=== PATIENT | female | born 1965 | race Caucasian/White ===

== ENCOUNTER 2017-10-27 00:46 | Emergency (ER) | payer SELFPAY ==
[2017-10-27 00:47] VITALS: BMI 42.3
[2017-10-27 00:55] VITALS: RESP 20
[2017-10-27] MEDS ORDERED: Sodium Chloride 0.9% 500 ML IV ONE (01:11)
[2017-10-27] MEDS ORDERED: Aluminum Hydroxide/Magnesium Hydroxide Susp (30 mL) PO STA (01:27)
[2017-10-27] MEDS ORDERED: Aluminum Hydroxide/Magnesium Hydroxide Susp (30 mL) ONE (01:35)
[2017-10-27] MEDS ORDERED: Sodium Chloride 0.9% 1,000 ML ONE (01:35)
[2017-10-27 01:57] LABS: BASO # 0.1 K/uL (0.0-0.2); BASO % 1.1 % (0.0-2.0); EOS # 0.2 K/uL (0.0-0.7); EOS % 1.9 % (0.0-4.0); HEMOGLOBIN 14.4 g/dL (11.0-16.0); LYMPH % 10.2 % (20.0-40.0); MEAN CELL VOLUME 90.3 fL (81.0-99.0); MEAN CORPUSCULAR HEMOGLOBIN 31.1 pg (27.0-31.0); MEAN CORPUSCULAR HGB CONC 34.4 g/dL (33.0-37.0); MEAN PLATELET VOLUME 8.2 fL (7.2-11.7); MONO # 0.5 K/uL (0.0-0.8); MONO % 4.7 % (0.0-10.0); NEUT # 8.2 K/uL (1.8-7.0); NEUT % 82.1 % (50.0-75.0); RBC 4.64 Mil/uL (3.80-5.20); RED CELL DISTRIBUTION WIDTH 13.6 % (11.5-14.5)
[2017-10-27 02:16] LABS: ALB/GLOB RATIO 1.1 (1.0-2.1); ALBUMIN 4.2 g/dL (3.5-5.0); ALT/SGPT 565 U/L (9-52); AST/SGOT 453 U/L (14-36); BLOOD UREA NITROGEN 10 mg/dL (7-17); CALCIUM 8.7 mg/dl (8.6-10.4); GFR AFRICAN-AMERICAN > 60; GFR NON-AFRICAN AMERICAN > 60; LIPASE 175 U/L (23-300)
--- NOTE | 2017-10-27 02:40 | C.PDOC ---
History Of Present Illness 52 year old female presents to the ED c/o intermittent epigastric pain associated with vomiting for the past 2 days. Patient reports her pain has been getting progressively worse since yesterday. Patient denies fever, chills, diarrhea, constipation, recent travel, sick contacts, past Hx of similar symptoms. Time Seen by Provider: 10/27/17 01:10 Chief Complaint (Nursing): Abdominal Pain History Per: Patient History/Exam Limitations: no limitations Onset/Duration Of Symptoms: Days Current Symptoms Are (Timing): Still Present Location Of Pain/Discomfort: Epigastric Radiation Of Pain To:: None Quality Of Discomfort: "Pain" Associated Symptoms: Vomiting Exacerbating Factors: None Alleviating Factors: None Recent travel outside of the [place]: No Additional History Per: Patient Abnormal Vaginal Bleeding: No Past Medical History Reviewed: Historical Data, Nursing Documentation, Vital Signs Vital Signs: Last Vital Signs Temp 98.3 F 10/27/17 06:15 Pulse 81 10/27/17 06:15 Resp 20 10/27/17 06:15 BP 149/81 10/27/17 06:15 Pulse Ox 98 10/27/17 06:15 - Medical History PMH: HTN (not on meds) Denies: Chronic Kidney Disease Surgical History: No Surg Hx Family History: States: Unknown Family Hx - Social History Hx Tobacco Use: No Hx Alcohol Use: No Hx Substance Use: No - Immunization History Hx Tetanus Toxoid Vaccination: No Hx Influenza Vaccination: No Hx Pneumococcal Vaccination: No Review Of Systems Constitutional: Negative for: Fever, Chills Cardiovascular: Negative for: Chest Pain, Palpitations Respiratory: Negative for: Cough, Shortness of Breath Gastrointestinal: Positive for: Vomiting, Abdominal Pain. Negative for: Diarrhea, Constipation Genitourinary: Negative for: Dysuria, Frequency Skin: Negative for: Rash Neurological: Negative for: Weakness, Numbness Physical Exam - Physical Exam Appears: Non-toxic, No Acute Distress Skin: Normal Color, Warm, Dry Head: Atraumatic, Normacephalic Oral Mucosa: Moist Neck: Normal ROM, Supple Chest: Symmetrical Cardiovascular: Rhythm Regular, Murmur Respiratory: Normal Breath Sounds, No Rhonchi, No Wheezing Gastrointestinal/Abdominal: Soft, Tenderness (epigastric, RUQ), No Distention, No Guarding, No Rebound, Other (obese) Back: No CVA Tenderness Extremity: Normal ROM, No Pedal Edema, No Calf Tenderness, No Deformity, No Swelling Neurological/Psych: Oriented x3, Normal Speech, Normal Cognition Gait: Steady ED Course And Treatment - Laboratory Results Result Diagrams: 10/27/17 01:52 10/27/17 01:52 Urine POC: Negative O2 Sat by Pulse Oximetry: 97 (On RA) Pulse Ox Interpretation: Normal - CT Scan/US CT abd/pelvis Other Rad Studies (CT/US): Read By Radiologist, Radiology Report Reviewed CT/US Interpretation: FINDINGS: The liver is decreased in attenuation consistent with fatty infiltration. The pancreas is normal. Gallbladder wall appears slightly edematous. No gallstones identified. No pericholecystic stranding. No hydronephrosis or perinephric stranding. There are non obstructing renal calculi. The bowel appears normal. A normal appendix is identified axial images 112 through 127, coronal image 75. There is an umbilical fat hernia without evidence of incarceration/strangulation. IMPRESSION: Slightly edematous gallbladder wall without gallstones or pericholecystic stranding. If there is clinical. concern for cholecystitis, additional imaging w ultrasound or HIDA could be performed. Progress Note: Plan: -Blood work. -CT abd/pelvis. -IV fluids. -Maalox 30 ml PO. -Pepcid 20 mg IVP. -Zofran 4 mf IVP. -UA. Patient reports feelign better after the medicine was given, labs were reviewed and patient's LFTs were elevated still pendig CT abd scan. Reevaluation Time: 05:17 Reassessment Condition: Improved (Pt sleeping comfortably in ED and in NAD , VSS. Abdomen remains soft Pt was instructed to follow up in clinic for further evaluation and also educated in diet control) Disposition Counseled Patient/Family Regarding: Studies Performed - Disposition Referrals: [facility] [Outside] Disposition: HOME/ ROUTINE Disposition Time: 05:27 Condition: STABLE Additional Instructions: Avoid greasy , spicy foods, red meat Follow up in medicine clinic Return to ER if worse Prescriptions: Aluminum Hydroxide/Magnesium H [Maalox 30 ml] 30 ml PO TID #100 ml Famotidine [Pepcid] 20 mg PO BID #20 tab Instructions: Acute Abdominal Pain (ED) Forms: [employer] (Danish) Print Language: KAZAKH - Clinical Impression Clinical Impression: Abdominal pain - PA / RISK ASSESSOR / Resident Statement MD/DO has reviewed & agrees with the documentation as recorded. - Scribe Statement The provider has reviewed the documentation as recorded by the Scribe Jose Juan Mcknight All medical record entries made by the Kelliibe were at my direction and personally dictated by me. I have reviewed the chart and agree that the record accurately reflects my personal performance of the history, physical exam, medical decision making, and the department course for this patient. I have also personally directed, reviewed, and agree with the discharge instructions and disposition.
[2017-10-27] MEDS ORDERED: Iodixanol 320 MG/ML 100 ML BOTTLE IV ONE (03:32)
[2017-10-27 03:33] LABS: SQUAMOUS EPITHIAL 1 /hpf (0-5); URINE BILIRUBIN NEGATIVE (NEGATIVE); URINE BLOOD 1+ (NEGATIVE); URINE CLARITY Clear (Clear); URINE COLOR Amber (YELLOW); URINE GLUCOSE (UA) NORMAL (Normal); URINE LEUKOCYTE ESTERASE TRACE Leu/uL (Negative); URINE NITRATE NEGATIVE (NEGATIVE); URINE PROTEIN NEGATIVE (NEGATIVE); URINE UROBILINOGEN NORMAL mg/dL (0.2-1.0)
--- NOTE | 2017-10-27 04:55 | CT ---
EXAM: CT Abdomen and Pelvis With Intravenous Contrast EXAM DATE/TIME: 10/27/2017 2:54 AM CLINICAL HISTORY: 52 years old, female; Pain; Abdominal pain; Epigastric; Additional info: Abd pain , epigastric, elevated lfts TECHNIQUE: Axial computed tomography images of the abdomen and pelvis with intravenous contrast. All CT scans at this facility use one or more dose reduction techniques, viz.: automated exposure control; ma/kV adjustment per patient size (including targeted exams where dose is matched to indication; i.e. head); or iterative reconstruction technique. Coronal and sagittal reformatted images were created and reviewed. CONTRAST: 100 mL of [id number] administered intravenously. COMPARISON: No relevant prior studies available. FINDINGS: The liver is decreased in attenuation consistent with fatty infiltration. The spleen is normal. The pancreas is normal. Gallbladder wall appears slightly edematous. No gallstones identified. No pericholecystic stranding. No hydronephrosis or perinephric stranding. There are non obstructing renal calculi. The bowel appears normal. A normal appendix is identified axial images 112 through 127, coronal image 75. There is an umbilical fat hernia without evidence of incarceration/strangulation. IMPRESSION: Slightly edematous gallbladder wall without gallstones or pericholecystic stranding. If there is clinical concern for cholecystitis, additional imaging w ultrasound or HIDA could be performed.
[2017-10-27 06:16] VITALS: BP 149/81; PULSE 81; TEMP 98.3
[2017-10-28 02:59] VITALS: O2SAT 97
== END 2017-10-27 06:16 | disposition home or self-care (01) ==
LOC: C.ER 00:46
DX: R10.13 Epigastric pain (principal); I10 Essential (primary) hypertension
CPT/HCPCS: 74177; 80053; 81001; 83690; 84703; 85025; 96374; 96375; 99285; J2405; J7040; Q9967

== ENCOUNTER 2017-12-30 08:22 | Emergency (ER) | payer OTHER ==
[2017-12-30 08:23] VITALS: BMI 42.3
[2017-12-30] MEDS ORDERED: Sodium Chloride 0.9% 1,000 ML IV ONE (08:44)
[2017-12-30] MEDS ORDERED: Sodium Chloride 0.9% 1,000 ML ONE (09:10)
[2017-12-30 09:39] LABS: BASO % 0.1 % (0.0-2.0); EOS % 0.2 % (0.0-4.0); LYMPH # 1.2 K/uL (1.0-4.3); LYMPH % 6.3 % (20.0-40.0); MEAN CELL VOLUME 89.7 fL (81.0-99.0); MEAN CORPUSCULAR HEMOGLOBIN 30.3 pg (27.0-31.0); MEAN CORPUSCULAR HGB CONC 33.8 g/dL (33.0-37.0); MEAN PLATELET VOLUME 8.6 fL (7.2-11.7); MONO # 1.2 K/uL (0.0-0.8); MONO % 6.4 % (0.0-10.0); NEUT # 16.1 K/uL (1.8-7.0); PLATELET COUNT 217 K/uL (130-400); RBC 4.29 Mil/uL (3.80-5.20); RED CELL DISTRIBUTION WIDTH 14.3 % (11.5-14.5)
[2017-12-30 09:45] LABS: WHITE BLOOD COUNT 18.5 K/uL (4.8-10.8)
[2017-12-30 09:47] LABS: SQUAMOUS EPITHIAL 6 /hpf (0-5); URINE BACTERIA RARE (<OCC); URINE BILIRUBIN NEGATIVE (NEGATIVE); URINE BLOOD 2+ (NEGATIVE); URINE CLARITY Hazy (Clear); URINE COLOR Amber (YELLOW); URINE GLUCOSE (UA) NORMAL (Normal); URINE LEUKOCYTE ESTERASE 2+ Leu/uL (Negative); URINE NITRATE POSITIVE (NEGATIVE); URINE PROTEIN 2+ mg/dL (NEGATIVE)
[2017-12-30 10:00] LABS: BANDS 8 % (0-2); LYMPHOCYTE 5 % (20-40); MONOCYTE 8 % (0-10); NEUTROPHIL 78 % (50-75); PLATELET ESTIMATE NORMAL (NORMAL); REACTIVE LYMPHOCYTES 1 % (0-0); TOTAL CELLS COUNTED 100
[2017-12-30 10:44] LABS: ALB/GLOB RATIO 0.9 (1.0-2.1); ALBUMIN 3.2 g/dL (3.5-5.0); ALT/SGPT 89 U/L (9-52); AST/SGOT 63 U/L (14-36); BLOOD UREA NITROGEN 15 mg/dL (7-17); CALCIUM 8.2 mg/dl (8.6-10.4); GFR AFRICAN-AMERICAN > 60; GFR NON-AFRICAN AMERICAN 52; LIPASE 80 U/L (23-300)
--- NOTE | 2017-12-30 11:12 | C.PDOC ---
History Of Present Illness 52 y/o female, obese, presents to the ER complaining of diffuse abdominal pain since yesterday which became localized to RUQ since today AM and associated with nausea and decreased PO intake. Patient describes pain as constant, aching. Patient denies high fever, chills, dizziness, neck pain, CP, SOB, dyspnea, diaphoresis, vomiting, diarrhea, UTI symptoms, hematuria. Ambulate to Ed for evaluation, appears in pain. Time Seen by Provider: 12/30/17 08:25 Chief Complaint (Nursing): Abdominal Pain History Per: Patient History/Exam Limitations: no limitations Onset/Duration Of Symptoms: Days Current Symptoms Are (Timing): Still Present Severity: Moderate Associated Symptoms: Nausea, Loss Of Appetite. denies: Fever, Chills, Vomiting , Diarrhea Past Medical History Reviewed: Historical Data, Nursing Documentation, Vital Signs Vital Signs: Last Vital Signs Temp 98.8 F 12/30/17 12:54 Pulse 77 12/30/17 12:54 Resp 18 12/30/17 12:54 BP 123/78 12/30/17 12:54 Pulse Ox 98 12/30/17 12:54 - Medical History PMH: HTN (not on meds) Denies: Chronic Kidney Disease Other PMH: Obese Other Surgeries: Hx of surgeries Family History: States: No Known Family Hx - Social History Hx Tobacco Use: No Hx Alcohol Use: No Hx Substance Use: No - Immunization History Hx Tetanus Toxoid Vaccination: No Hx Influenza Vaccination: No Hx Pneumococcal Vaccination: No Review Of Systems Except As Marked, All Systems Reviewed And Found Negative. Constitutional: Negative for: Fever, Chills Gastrointestinal: Positive for: Nausea, Abdominal Pain. Negative for: Vomiting , Diarrhea Genitourinary: Negative for: Dysuria, Hematuria Physical Exam - Physical Exam Appears: Non-toxic, No Acute Distress Skin: Normal Color, Warm Head: Normacephalic Nose: No Flaring, No Discharge Oral Mucosa: Moist, No Drooling Throat: No Erythema, No Drooling Neck: Trachea Midline, Supple Chest: Symmetrical Cardiovascular: Rhythm Regular Respiratory: No Accessory Muscle Use, No Rales, No Rhonchi, No Stridor, No Wheezing Gastrointestinal/Abdominal: Soft, Tenderness (moderate RUQ tenderness), No Distention, No Guarding, No Rebound Back: No CVA Tenderness Extremity: No Pedal Edema, No Deformity Neurological/Psych: Oriented x3, Normal Speech, Normal Motor, Normal Sensation ED Course And Treatment - Laboratory Results Result Diagrams: 12/30/17 09:24 12/30/17 10:28 Lab Interpretation: No Changes Compared To Prior Results ECG: Interpreted By Me, Viewed By Me ECG Rhythm: Sinus Rhythm ECG Interpretation: Normal Interpretation Of ECG: SR@89/MIN, LAD, T WAVE INVERSION IN III, NO ACUTE ST-T CHANGES O2 Sat by Pulse Oximetry: 99 (RA) Pulse Ox Interpretation: Normal - CT Scan/US Gallbladder/hepatic US Other Rad Studies (CT/US): Radiology Report Reviewed CT/US Interpretation: ADDENDUM: Dilated common bile duct and intrahepatic biliary dilatation as well as cholelithiasis. Correlate clinically. Echogenic liver may be seen in setting of hepatic parenchymal disease or fatty infiltration. [ Addendum Report Added by Amanda Hernandez MD at 12/30/2017 12:03:34 ]. HISTORY: RUQ pain. COMPARISON: CT abdomen pelvis with IV contrast performed 10/27/17. TECHNIQUE: Sonographic evaluation of the right upper quadrant of the abdomen. FINDINGS: LIVER: Measures 17.9 cm in length. Echogenic liver may be seen in setting of hepatic parenchymal disease or fatty infiltration. No focal hepatic mass identified. The main portal vein appears patent with normal directional flow. Intrahepatic biliary ductal dilatation. GALLBLADDER: Gallstones. No gallbladder wall thickening or pericholecystic edema. Negative sonographic Looney's sign as assessed by the brick pitcher. COMMON BILE DUCT: Measures 8 mm. PANCREAS: Not well-visualized. RIGHT KIDNEY : Measures 15.0 x 6.5 x 6.3 cm. No obstructing calculus or hydronephrosis identified. AORTA: Limited visualization appears grossly unremarkable. IVC: Limited visualization appears grossly unremarkable. OTHER FINDINGS: None . IMPRESSION: Echogenic liver may be seen in setting of hepatic parenchymal disease or fatty infiltration. Cholelithiasis. Dilated common bile duct and intrahepatic biliary ducts. Progress Note: Labs ordered. Patient given IV fluids. Pt was OBS in ED for 4 hours. On re-evaluation, pt reports moderate improvement in pain. Afebrile, hemodynamicaly stable. NOn-toxic. Tolerate Po well in ED. PulseOx 99% RA. ENT: no acute findings. neck: SUpple, (-) meningeal sign. Lungs: CTA B/L, BS equal B/L. Abd: benign, (-) guarding, (-) rebound, (-) localized tenderness. back: (-) CVA tenderness. Blood work review- mild leukocytosis with let shift. BMP results review and compare with previous visit, high LFT but went down compare to previous visit from 09/2017. UA (+)nitrate, WBC, RBC. US results review and compare to previous sudy from 09/2017, no new acute findings noted. Pt has clinical findings c/w UTI r/o pyelonephritis. Rocephin given empirically. UCx-pending. results review and discussed with pateint. Advised. ref. to f/u with PMD, GI in 2-3 days for re-eavl. return if any worsneing or new changes. Disposition Counseled Patient/Family Regarding: Diagnosis, Need For Followup - Disposition Referrals: [facility] [Outside] Benito Gonzalez MD [Staff Provider] - Disposition: HOME/ ROUTINE Disposition Time: 12:39 Condition: STABLE Additional Instructions: ENCOURAGE FLUIDS DIET RESTRICTION, AVOID FATTY, GREASY FOOD TAKE MEDICATION PRESCRIBED FOLLOW UP WITH PMD, GASTROENTEROLOGY IN 2-3 DAYS FOR RE-EVALUATION. RETURN TO ED IF A [place] WORSENING OR NEW CHANGES. Prescriptions: Cefpodoxime [Vantin] 400 mg PO BID #40 tab Cranberry Fruit Extract [Cranberry] 500 mg PO BID #20 capsule traMADol [Ultram] 50 mg PO TID #7 tab Instructions: Kidney Infection, Gallstones Forms: [facility] (Uzbek) Print Language: NIUEAN - Clinical Impression Clinical Impression: UTI (urinary tract infection), Cholecystitis, Pyelonephritis - PA / GLASS OR MIRROR INSPECTOR / Resident Statement MD/DO has reviewed & agrees with the documentation as recorded. - Scribe Statement The provider has reviewed the documentation as recorded by the Lexx Torres Provider Attestation All medical record entries made by the Kelliibe were at my direction and personally dictated by me. I have reviewed the chart and agree that the record accurately reflects my personal performance of the history, physical exam, medical decision making, and the department course for this patient. I have also personally directed, reviewed, and agree with the discharge instructions and disposition.
--- NOTE | 2017-12-30 12:01 | US ---
HISTORY: RUQ pain COMPARISON: CT abdomen pelvis with IV contrast performed 10/27/17 TECHNIQUE: Sonographic evaluation of the right upper quadrant of the abdomen. FINDINGS: LIVER: Measures 17.9 cm in length. Echogenic liver may be seen in setting of hepatic parenchymal disease or fatty infiltration. No focal hepatic mass identified. The main portal vein appears patent with normal directional flow. Intrahepatic biliary ductal dilatation. GALLBLADDER: Gallstones. No gallbladder wall thickening or pericholecystic edema. Negative sonographic Looney's sign as assessed by the lab systems analyst. COMMON BILE DUCT: Measures 8 mm. PANCREAS: Not well-visualized. RIGHT KIDNEY: Measures 15.0 x 6.5 x 6.3 cm. No obstructing calculus or hydronephrosis identified. AORTA: Limited visualization appears grossly unremarkable. IVC: Limited visualization appears grossly unremarkable. OTHER FINDINGS: None . IMPRESSION: Echogenic liver may be seen in setting of hepatic parenchymal disease or fatty infiltration. Cholelithiasis. Dilated common bile duct and intrahepatic biliary ducts.
[2017-12-30 12:55] VITALS: BP 123/78; PULSE 77; RESP 18; TEMP 98.8
[2017-12-30 13:56] VITALS: O2SAT 99
--- NOTE | 2017-12-31 21:29 | CARD ---
APPROVED REPORT EKG Measurement Heart [id number] <Conclusion> Normal sinus rhythm Possible Left atrial enlargement Left ventricular hypertrophy Abnormal ECG
== END 2017-12-30 14:25 | disposition home or self-care (01) ==
LOC: C.ER 08:22
DX: N39.0 Urinary tract infection, site not specified (principal); K81.9 Cholecystitis, unspecified; N10 Acute pyelonephritis
CPT/HCPCS: 76705; 80053; 81001; 83690; 84484; 85025; 87086; 87181; 93005; 96361; 96365; 96375; 99285; J0696; J1885; J2270; J2405; J7040

== ENCOUNTER 2018-01-09 13:28 | Emergency (ER) | payer OTHER ==
[2018-01-09 13:29] VITALS: BMI 42.3
[2018-01-09 14:54] LABS: SQUAMOUS EPITHIAL 4 /hpf (0-5); URINE BACTERIA MOD (<OCC); URINE BILIRUBIN NEGATIVE (NEGATIVE); URINE BLOOD NEGATIVE (NEGATIVE); URINE CLARITY Hazy (Clear); URINE COLOR Yellow (YELLOW); URINE GLUCOSE (UA) NORMAL (Normal); URINE LEUKOCYTE ESTERASE 2+ Leu/uL (Negative); URINE PROTEIN NEGATIVE (NEGATIVE); URINE UROBILINOGEN NORMAL mg/dL (0.2-1.0)
--- NOTE | 2018-01-09 15:18 | RAD ---
HISTORY: COUGH/BACK PAIN COMPARISON: 11/10/2014 TECHNIQUE: Chest PA and lateral FINDINGS: LUNGS: No active pulmonary disease. PLEURA: No significant pleural effusion identified. No pneumothorax apparent. CARDIOVASCULAR: No radiographic findings to suggest acute or significant cardiovascular disease. OSSEOUS STRUCTURES: No significant abnormalities. VISUALIZED UPPER ABDOMEN: Normal. OTHER FINDINGS: None. IMPRESSION: No active disease. No significant interval change compared to the prior examination(s).
[2018-01-09] MEDS ORDERED: Ciprofloxacin 400mg/200ml D5W 400 MG/200 ML BAG IVPB ONE (15:27)
[2018-01-09] MEDS: Ciprofloxacin 400mg/200ml D5W 400 MG/200 ML BAG IVPB STA ×2 (15:30→18:21)
--- NOTE | 2018-01-09 15:51 | C.PDOC ---
History Of Present Illness 52 y/o female presents to the ER complaining of mid-back pain which has been present for the past 3 days. Patient states that the pain is constant. Patient describes the pain as dull and throbbing. She rates the pain 7/10. She is also complaining of cough. Denies having any injury, fever, chills, nausea, vomiting , dysuria, and hematuria. Of note, patient states that she was seen for body aches in [place] [facility] about 10 days ago.At the time, she was diagnosed and treated for UTI. Time Seen by Provider: 01/09/18 13:39 Chief Complaint (Nursing): Back Pain History Per: Patient History/Exam Limitations: no limitations Onset/Duration Of Symptoms: Days Quality Of Discomfort: Dull Severity: Moderate Past Medical History Reviewed: Historical Data, Nursing Documentation, Vital Signs Vital Signs: Last Vital Signs Temp 97.9 F 01/09/18 13:33 Pulse 84 01/09/18 13:33 Resp 20 01/09/18 13:33 BP 139/86 01/09/18 13:33 Pulse Ox 98 01/09/18 16:11 - Medical History PMH: HTN (not on meds) Denies: Chronic Kidney Disease Other Surgeries: Hx of surgeries Family History: States: No Known Family Hx - Social History Hx Tobacco Use: No Hx Alcohol Use: No Hx Substance Use: No - Immunization History Hx Tetanus Toxoid Vaccination: No Hx Influenza Vaccination: No Hx Pneumococcal Vaccination: No Review Of Systems Except As Marked, All Systems Reviewed And Found Negative. Constitutional: Negative for: Fever, Chills Respiratory: Positive for: Cough Gastrointestinal: Negative for: Nausea, Vomiting, Diarrhea Genitourinary: Negative for: Dysuria, Hematuria Musculoskeletal: Positive for: Back Pain (mid-back pain) Physical Exam - Physical Exam Appears: Non-toxic, No Acute Distress, Other (obese) Skin: Normal Color, Warm Head: Atraumatic, Normacephalic Eye(s): bilateral: Normal Inspection Ear(s): Bilateral: Normal Nose: Normal Oral Mucosa: Moist Throat: Normal, No Erythema, No Exudate Neck: Supple Chest: Symmetrical Cardiovascular: Rhythm Regular Respiratory: Normal Breath Sounds, No Accessory Muscle Use, No Rales, No Rhonchi , No Wheezing Gastrointestinal/Abdominal: Normal Exam, Soft, No Tenderness Back: Normal Inspection, No CVA Tenderness, No Paraspinal Tenderness Neurological/Psych: Oriented x3, Normal Speech, Normal Motor, Normal Sensation ED Course And Treatment O2 Sat by Pulse Oximetry: 98 (RA) Pulse Ox Interpretation: Normal - Other Rad CXR X-Ray: Viewed By Me, Read By Radiologist Interpretation: HISTORY: COUGH/BACK PAIN. COMPARISON: 11/10/2014. TECHNIQUE : Chest PA and lateral. FINDINGS: LUNGS: No active pulmonary disease. PLEURA: No significant pleural effusion identified. No pneumothorax apparent. CARDIOVASCULAR: No radiographic findings to suggest acute or significant cardiovascular disease. OSSEOUS STRUCTURES: No significant abnormalities. VISUALIZED UPPER ABDOMEN: Normal. OTHER FINDINGS: None. IMPRESSION: No active disease. No significant interval change compared to the prior examination (s). Medical Decision Making Medical Decision Making: Plan: --Motrin 600 mg PO --Tylenol 650 mg PO --CXR --UA Disposition Counseled Patient/Family Regarding: Studies Performed, Diagnosis, Need For Followup, Rx Given - Disposition Referrals: [facility] [Outside] Disposition: HOME/ ROUTINE Disposition Time: 17:54 Condition: STABLE Prescriptions: Ciprofloxacin HCl [Cipro] 1 tab PO BID #14 tab Ibuprofen [Motrin] 1 tab PO TID PRN #30 tab PRN Reason: Pain Instructions: Urinary Tract Infection, Adult (DC) Forms: Gen Discharge Inst Serbian, General Discharge Instructions - Clinical Impression Clinical Impression: Thoracic back pain, Cough, UTI (urinary tract infection) - Scribe Statement The provider has reviewed the documentation as recorded by the Lexx Torres Provider Attestation: All medical record entries made by the Kelliibbette were at my direction and personally dictated by me. I have reviewed the chart and agree that the record accurately reflects my personal performance of the history, physical exam, medical decision making, and the department course for this patient. I have also personally directed, reviewed, and agree with the discharge instructions and disposition.
[2018-01-09 18:26] VITALS: BP 123/78; PULSE 71; RESP 16; TEMP 98.3; O2SAT 99
== END 2018-01-09 18:26 | disposition home or self-care (01) ==
LOC: C.ER 13:28
DX: N39.0 Urinary tract infection, site not specified (principal); M54.6 Pain in thoracic spine; R05 Cough
CPT/HCPCS: 71046; 81001; 87086; 87181; 96365; 96366; 99285; J0744

== ENCOUNTER 2018-02-01 11:32 | Inpatient (IN) | payer OTHER ==
[2018-02-01 11:33] VITALS: BMI 40.8
[2018-02-01 11:39] VITALS: RESP 20
[2018-02-01] MEDS ORDERED: Sodium Chloride 0.9% 1,000 ML IV ONE (12:15)
--- NOTE | 2018-02-01 12:36 | C.PDOC ---
History Of Present Illness 53 year old female presents to the ED for evaluation of right upper back pain which has been intermittent for 3 months. The pain started progressing towards her left upper back over the past 3-4 days. Symptoms are worse with movement and deep inspiration. She reports pain is so severe it causes her SOB. Patient states she has been taking Naproxen with minimal relief. Patient states she has been evaluated in the clinic and sent to specialist, but the cost is very high and she has no insurance. She denies fever, chills, headache, nausea, vomiting. Patient also reports that she has a right breast mass, for which she underwent biopsy which showed the area is non-cancerous. Time Seen by Provider: 02/01/18 11:54 Chief Complaint (Nursing): Back Pain History Per: Patient Onset/Duration Of Symptoms: Days (3-4), Intermittent Episodes (3 months ) Current Symptoms Are (Timing): Worse Quality Of Discomfort: "Pain" Previous Symptoms: Back Pain Exacerbating Factor(s): Movement, Other (deep inspiration) Additional History Per: Patient Past Medical History Reviewed: Historical Data, Nursing Documentation, Vital Signs Vital Signs: Last Vital Signs Temp 98 F 02/01/18 11:37 Pulse 82 02/01/18 13:21 Resp 20 02/01/18 13:21 BP 149/89 02/01/18 13:21 Pulse Ox 100 02/01/18 16:09 - Medical History PMH: HTN (not on meds) Surgical History: No Surg Hx Family History: States: Unknown Family Hx - Social History Hx Tobacco Use: No Hx Alcohol Use: No Hx Substance Use: No - Immunization History Hx Tetanus Toxoid Vaccination: No Hx Influenza Vaccination: No Hx Pneumococcal Vaccination: No Review Of Systems Constitutional: Negative for: Fever, Chills Gastrointestinal: Negative for: Nausea, Vomiting Musculoskeletal: Positive for: Back Pain (right and left upper ) Neurological: Negative for: Headache Physical Exam - Physical Exam Appears: Non-toxic, Other (uncomfortable) Skin: Normal Color, Warm, Dry Head: Atraumatic, Normacephalic Eye(s): bilateral: Normal Inspection, EOMI Nose: Normal Oral Mucosa: Moist Neck: Supple Chest: Symmetrical, No Deformity, No Tenderness Cardiovascular: Rhythm Regular, No Murmur Respiratory: Normal Breath Sounds, No Rales, No Rhonchi, No Wheezing Back: Normal Inspection, No Vertebral Tenderness, No Muscle Spasm, No Paraspinal Tenderness, No Other (swelling or bulging ) Extremity: Normal ROM, No Tenderness, No Pedal Edema, Capillary Refill (less than 2 seconds ), No Swelling Neurological/Psych: Oriented x3, Normal Speech Gait: Steady ED Course And Treatment - Laboratory Results Result Diagrams: 02/01/18 12:36 02/01/18 12:36 ECG: Interpreted By Me, Viewed By Me ECG Rhythm: Sinus Rhythm Interpretation Of ECG: Normal Sinus Rhythm at rate 79bpm. Left axis deviation. Rate From EC O2 Sat by Pulse Oximetry: 100 (on RA) Pulse Ox Interpretation: Normal - CT Scan/US Chest CT Other Rad Studies (CT/US): Interpreted By Me, Read By Radiologist, Radiology Report Reviewed CT/US Interpretation: CT chest pulmonary angiogram. History: Shortness of breath. Comparison: None available. Technique: Multiple contiguous axial angiographic images were performed through the chest according to CT chest pulmonary embolus protocol with the use of intravenous contrast. Subsequently, sagittal and coronal reformatted as well as sagittal and coronal reformatted MIPS images were obtained. Findings: No significant axillary adenopathy. Lobulated calcifications seen at the lateral aspect of the right breast measuring 6 millimeters. Correlation with mammogram is recommended. Thyroid gland appears preserved. No significant prevascular or mediastinal adenopathy. No significant hilar adenopathy. No pleural or pericardial effusion. Prominent liver with a suggestion of fatty infiltration. Distended gallbladder. Degenerative changes in the spine. No evidence of gross central pulmonary embolism. More limited evaluation of the segmental and subsegmental branches secondary to some motion and streak artifact for example a questionable filling defect seen on series 2, image 85 within the right lung as well as within the left lung at the same level may represent some streak artifact. Visualized aorta is preserved. Right lung: Atelectasis at the lung base. Left lung: Mild focal areas of nodular consolidation seen within the lingula as well as the anterior aspect of the left lower lobe. Mild dependent atelectasis at the posterior aspect of the lung base. Impression: 1. No evidence of gross central pulmonary embolism. More limited evaluation of the segmental and subsegmental branches secondary to some motion and streak artifact for example a questionable filling defect seen on series 2, image 85 within the right lung as well as within the left lung at the same level may represent some streak artifact. 2. Mild focal areas of nodular consolidation seen within the lingula as well as the anterior aspect of the left lower lobe. Clinical correlation. 3. Prominent liver with a suggestion of fatty infiltration. 4. Lobulated calcifications seen at the lateral aspect of the right breast measuring 6 millimeters. Correlation with mammogram is recommended. Medical Decision Making Medical Decision Making: Impression:left upper back pain Plan: * Bloodwork * Urinalysis * CT Angio Chest * EKG * Morphine IVP * IV Fluids Progress: diagnostics reviewed. Labs show mild leukocytosis with shift, and increase in LFT, D-Dimer elevated Lovenox ordered Patient continued to complain of pain, Morphine ordered CTA shows no PE. There are focal areas of nodular consolidation seen within the lingula as well as the anterior aspect of the left lower lobe. Case discussed with ER attending who recommends treatment for pneumonia and admission [id number] Fabian Cardoza and discussed case. He accepted admission and requests ordering Flu test Disposition - Disposition Disposition: HOSPITALIZED Disposition Time: 16:08 Condition: STABLE - POA Present On Arrival: None - Clinical Impression Clinical Impression: Pneumonia involving left lung, Upper back pain on left side - PA / [employer] / Resident Statement MD/DO has reviewed & agrees with the documentation as recorded. - Scribe Statement The provider has reviewed the documentation as recorded by the Scribe (Elmira Cardoza) All medical record entries made by the Scribe were at my direction and personally dictated by me. I have reviewed the chart and agree that the record accurately reflects my personal performance of the history, physical exam, medical decision making, and the department course for this patient. I have also personally directed, reviewed, and agree with the discharge instructions and disposition. Decision To Admit - Pt Status Changed To: Hospital Disposition Of: Inpatient - Admit Certification Admit to Inpatient:: After my assessment, the patient will require hospitalization for at least two midnights. This is because of the severity of symptoms shown, intensity of services needed, and/or the medical risk in this patient being treated as an outpatient. - InPatient: Physician Admission Certification:: Patient with abnormal labs and CT. will need IV antibiotics and pain meds - . Bed Request Type: Regular Admitting Physician: Fabian Cardoza Patient Diagnosis: Pneumonia involving left lung
[2018-02-01] MEDS ORDERED: Morphine 4 MG/ML VIAL ONE ×2 (12:44→15:42)
[2018-02-01] MEDS ORDERED: Sodium Chloride 0.9% 1,000 ML ONE (12:44)
[2018-02-01 12:48] LABS: BASO # 0.1 K/uL (0.0-0.2); BASO % 0.8 % (0.0-2.0); EOS # 0.1 K/uL (0.0-0.7); EOS % 0.7 % (0.0-4.0); HEMOGLOBIN 13.3 g/dL (11.0-16.0); LYMPH % 16.1 % (20.0-40.0); MEAN CELL VOLUME 90.1 fL (81.0-99.0); MEAN CORPUSCULAR HEMOGLOBIN 30.7 pg (27.0-31.0); MEAN CORPUSCULAR HGB CONC 34.1 g/dL (33.0-37.0); MEAN PLATELET VOLUME 7.8 fL (7.2-11.7); MONO # 0.7 K/uL (0.0-0.8); MONO % 5.4 % (0.0-10.0); NEUT # 9.5 K/uL (1.8-7.0); RBC 4.34 Mil/uL (3.80-5.20); RED CELL DISTRIBUTION WIDTH 14.2 % (11.5-14.5); WHITE BLOOD COUNT 12.4 K/uL (4.8-10.8)
[2018-02-01 13:02] LABS: ALB/GLOB RATIO 0.9 (1.0-2.1); ALBUMIN 4.1 g/dL (3.5-5.0); ALT/SGPT 270 U/L (9-52); AST/SGOT 74 U/L (14-36); BLOOD UREA NITROGEN 12 mg/dL (7-17); CALCIUM 9.4 mg/dl (8.6-10.4); GFR AFRICAN-AMERICAN > 60; GFR NON-AFRICAN AMERICAN > 60
[2018-02-01 13:05] LABS: B-TYPE NATRIURETIC PEPTIDE 80.2 pg/mL (0-900)
[2018-02-01 13:07] LABS: PROTHROMBIN TIME 11.8 SECONDS (9.7-12.2)
[2018-02-01 13:39] LABS: HCG,QUALITATIVE URINE NEGATIVE (NEGATIVE)
[2018-02-01 13:41] LABS: SQUAMOUS EPITHIAL 1 /hpf (0-5); URINE BACTERIA RARE (<OCC); URINE BILIRUBIN NEGATIVE (NEGATIVE); URINE BLOOD NEGATIVE (NEGATIVE); URINE CLARITY Clear (Clear); URINE COLOR Yellow (YELLOW); URINE GLUCOSE (UA) NORMAL (Normal); URINE LEUKOCYTE ESTERASE TRACE Leu/uL (Negative); URINE PROTEIN NEGATIVE (NEGATIVE); URINE UROBILINOGEN NORMAL mg/dL (0.2-1.0)
[2018-02-01] MEDS ORDERED: Iodixanol 320 MG/ML 100 ML BOTTLE IV ONE (13:55)
[2018-02-01] MEDS ORDERED: Enoxaparin 40 mg Syringe SC STA (15:01)
--- NOTE | 2018-02-01 15:29 | CT ---
CT chest pulmonary angiogram History: Shortness of breath. Comparison: None available. Technique: Multiple contiguous axial angiographic images were performed through the chest according to CT chest pulmonary embolus protocol with the use of intravenous contrast. Subsequently, sagittal and coronal reformatted as well as sagittal and coronal reformatted MIPS images were obtained. Findings: No significant axillary adenopathy. Lobulated calcifications seen at the lateral aspect of the right breast measuring 6 millimeters. Correlation with mammogram is recommended. Thyroid gland appears preserved. No significant prevascular or mediastinal adenopathy. No significant hilar adenopathy. No pleural or pericardial effusion. Prominent liver with a suggestion of fatty infiltration. Distended gallbladder. Degenerative changes in the spine. No evidence of gross central pulmonary embolism. More limited evaluation of the segmental and subsegmental branches secondary to some motion and streak artifact for example a questionable filling defect seen on series 2, image 85 within the right lung as well as within the left lung at the same level may represent some streak artifact. Visualized aorta is preserved. Right lung: Atelectasis at the lung base. Left lung: Mild focal areas of nodular consolidation seen within the lingula as well as the anterior aspect of the left lower lobe. Mild dependent atelectasis at the posterior aspect of the lung base. Impression: 1. No evidence of gross central pulmonary embolism. More limited evaluation of the segmental and subsegmental branches secondary to some motion and streak artifact for example a questionable filling defect seen on series 2, image 85 within the right lung as well as within the left lung at the same level may represent some streak artifact. 2. Mild focal areas of nodular consolidation seen within the lingula as well as the anterior aspect of the left lower lobe. Clinical correlation. 3. Prominent liver with a suggestion of fatty infiltration. 4. Lobulated calcifications seen at the lateral aspect of the right breast measuring 6 millimeters. Correlation with mammogram is recommended.
[2018-02-01] MEDS ORDERED: Enoxaparin 100 mg Syringe ONE (15:43)
[2018-02-01] MEDS ORDERED: Azithromycin 500mg/250ML NS 500 MG/250 ML BAG IV STA (15:56)
[2018-02-01] MEDS ORDERED: cefTRIAXone IV 1 gm in Dextros 50 ML IV STA (15:56)
--- NOTE | 2018-02-01 16:17 | CP.PCM.HP ---
<Chris Randall - Last Filed: 02/01/18 17:56> History of Present Illness - History of Present Illness History of Present Illness: CC: "My back hurts" HPI: 53 year old female with a past medical history of Pulmonary Embolism (2014 ) who presents to the ED for evaluation of left upper back pain which has been intermittent for 3 months. The pain started progressing towards her left upper back over the past 3-4 days. Symptoms are worse with movement and deep inspiration. Patient describes the pain as dull and throbbing. She rates the pain 7/10. She reports pain is so severe it causes her SOB. Patient states she has been taking Naproxen with minimal relief. Patient states she has been evaluated in the clinic and sent to specialist, but the cost is very high and she has no insurance. She states the current pain is not similiar to when she had the PE. She denies fever, chills, headache, nausea, vomiting. Patient also reports that she has a right breast mass, for which she underwent biopsy which showed the area is non-cancerous. She was last seen in the ER on 01/09/18 with similar symptoms, at that time she was diagnosed with a UTI and sent home on cipro and ibuprofen. PMD: [facility] PMHx: Pulmonary Embolism 2015, Cholelithiasis PSHx: Denies Allegies: NKA FamHx: DM and HLD in family SocialHx: Denies tobacco hx, denies alcohol use, denies illicit drug use, lives with family, used to work as a [employer] Code Status: Full Code Present on Admission - Present on Admission Any Indicators Present on Admission: No Review of Systems - Constitutional Constitutional: Fatigue. absent: Chills, Fever, Headache, Night Sweats - Breasts Breasts: absent: Pain - Cardiovascular Cardiovascular: absent: Chest Pain, Lightheadedness, Orthopnea, Palpitations - Respiratory Respiratory: Cough, Pain on Inspiration, Chest Congestion, Pain with Coughing. absent: Hemoptysis - Gastrointestinal Gastrointestinal: absent: Abdominal Pain, Constipation, Diarrhea - Genitourinary Genitourinary: absent: Dysuria, Hematuria - Musculoskeletal Musculoskeletal: absent: Arthralgias - Integumentary Integumentary: absent: Bleeding Lesions - Neurological Neurological: absent: Confusion Past Patient History - Past Medical History & Family History Past Medical History?: Yes - Past Social History Smoking Status: Never Smoked - CARDIAC Hx Hypertension: Yes (not on meds) - PULMONARY Hx Respiratory Disorders: Yes (SOB on excertion) Hx Pulmonary Edema: Yes (? 3 YEARS AGO) - NEUROLOGICAL Hx Neurological Disorder: No - HEENT Hx HEENT Problems: No - RENAL Hx Chronic Kidney Disease: No - ENDOCRINE/METABOLIC Hx Endocrine Disorders: No - HEMATOLOGICAL/ONCOLOGICAL Hx Blood Disorders: No - INTEGUMENTARY Hx Dermatological Problems: No - MUSCULOSKELETAL/RHEUMATOLOGICAL Hx Falls: No - GASTROINTESTINAL Hx Gastrointestinal Disorders: Yes Hx Gastroesophageal Reflux: Yes - GENITOURINARY/GYNECOLOGICAL Hx Genitourinary Disorders: No - PSYCHIATRIC Hx Substance Use: No - SURGICAL HISTORY Hx Surgeries: Yes Hx Breast Biopsy: Yes (right) - ANESTHESIA Hx Anesthesia: Yes Hx Anesthesia Reactions: No Meds Allergies/Adverse Reactions: Allergies Allergy/AdvReac Type Severity Reaction Status Date / Time No Known Allergies Allergy Verified 02/01/18 11:37 Physical Exam - Constitutional Appears: Well, No Acute Distress - Head Exam Head Exam: ATRAUMATIC, NORMAL INSPECTION - Eye Exam Eye Exam: EOMI Pupil Exam: PERRL - ENT Exam ENT Exam: Mucous Membranes Moist - Neck Exam Neck exam: Positive for: Normal Inspection. Negative for: Lymphadenopathy, Tenderness - Respiratory Exam Respiratory Exam: Chest Wall Tenderness, Clear to Auscultation Bilateral, NORMAL BREATHING PATTERN. absent: Rales, Rhonchi, Wheezes - Cardiovascular Exam Cardiovascular Exam: REGULAR RHYTHM, +S1, +S2. absent: Bradycardia, Tachycardia , JVD - GI/Abdominal Exam GI & Abdominal Exam: Normal Bowel Sounds, Soft. absent: Tenderness - Extremities Exam Extremities exam: Positive for: normal capillary refill, normal inspection, pedal pulses present. Negative for: calf tenderness, tenderness - Back Exam Back exam: absent: CVA tenderness (L), CVA tenderness (R), rash noted, tenderness - Neurological Exam Neurological exam: Alert, CN II-XII Intact, Oriented x3 - Psychiatric Exam Psychiatric exam: Normal Affect, Normal Mood - Skin Skin Exam: Intact, Normal Color, Warm Results - Vital Signs Recent Vital Signs: Last Vital Signs Temp 98 F 02/01/18 11:37 Pulse 82 02/01/18 13:21 Resp 20 02/01/18 13:21 BP 149/89 02/01/18 13:21 Pulse Ox 100 02/01/18 16:09 - Labs Result Diagrams: 02/01/18 12:36 02/01/18 12:36 Labs: Laboratory Results - last 24 hr 02/01/18 02/01/18 02/01/18 12:36 12:36 12:36 WBC 12.4 H RBC 4.34 Hgb 13.3 Hct 39.1 MCV 90.1 MCH 30.7 MCHC 34.1 RDW 14.2 Plt Count 256 MPV 7.8 Neut % (Auto) 77.0 H Lymph % (Auto) 16.1 L [place] % (Auto) 5.4 Eos % (Auto) 0.7 Baso % (Auto) 0.8 Neut # (Auto) 9.5 H Lymph # (Auto) 2.0 [place] # (Auto) 0.7 Eos # (Auto) 0.1 Baso # (Auto) 0.1 PT 11.8 INR 1.0 APTT 32 D-Dimer, Quantitative 586 H Sodium 143 Potassium 4.2 Chloride 103 Carbon Dioxide 27 Anion Gap 18 BUN 12 Creatinine 0.7 Est GFR ( Amer) > 60 Est GFR (Non-Af Amer) > 60 Random Glucose 104 Calcium 9.4 Total Bilirubin 1.0 AST 74 H D ALT 270 H D Alkaline Phosphatase 369 H D NT-Pro-B Natriuret Pep 80.2 Total Protein 8.4 H Albumin 4.1 Globulin 4.4 H Albumin/Globulin Ratio 0.9 L Urine Color Urine Clarity Urine pH Ur Specific Et[place] Urine Protein Urine Glucose (UA) Urine Ketones Urine Blood Urine Nitrate Urine Bilirubin Urine Urobilinogen Ur Leukocyte Esterase Urine WBC (Auto) Urine RBC (Auto) Ur Squamous Epith Cells Urine Bacteria Urine HCG, Qual 02/01/18 13:31 WBC RBC Hgb Hct MCV MCH MCHC RDW Plt Count MPV Neut % (Auto) Lymph % (Auto) [place] % (Auto) Eos % (Auto) Baso % (Auto) Neut # (Auto) Lymph # (Auto) [place] # (Auto) Eos # (Auto) Baso # (Auto) PT INR APTT D-Dimer, Quantitative Sodium Potassium Chloride Carbon Dioxide Anion Gap BUN Creatinine Est GFR ( Amer) Est GFR (Non-Af Amer) Random Glucose Calcium Total Bilirubin AST ALT Alkaline Phosphatase NT-Pro-B Natriuret Pep Total Protein Albumin Globulin Albumin/Globulin Ratio Urine Color Yellow Urine Clarity Clear Urine pH 5.0 Ur Specific Etta 1.016 Urine Protein Negative Urine Glucose (UA) Normal Urine Ketones Negative Urine Blood Negative Urine Nitrate Negative Urine Bilirubin Negative Urine Urobilinogen Normal Ur Leukocyte Esterase Trace Urine WBC (Auto) 5 Urine RBC (Auto) 3 Ur Squamous Epith Cells 1 Urine Bacteria Rare Urine HCG, Qual Negative Assessment & Plan (1) Pneumonia involving left lung Assessment and Plan: Chest CTA shows areas of consolidation however it seems CTA from 2015 showed distal pulmonary emboli in the same region - and today's chest CTA had some motion and streak artifact which made it difficult to entirely rule out a distal segmental/subsegmental PE. Thus we will treat for PNA but will also treat for PE. Mild Leukocytosis, afebrile, Pain upper left flank, deep pressure pain, not tender to palpation, worse with inspiration Labs/Diagnostics: F/U Blood Cx Imaging: Chest CTA: Mild focal areas of nodular consolidation seen within the lingula as well as the anterior aspect of the left lower lobe. Will order CT abd/pelvis to rule out abdominal etiologies to her left flank pain Meds: Rocephin 1g IVP QD Azithromycin 500mg IVP QD Toradol 30mg SC Q6H PRN for severe pain Status: Acute Priority: High (2) Fatty liver Assessment and Plan: Elevated AST/ALT/Alk Phos Enzymes possibly elevated due to stress response Imaging: Chest CTA: Prominent liver with a suggestion of fatty infiltration F/U CT abd/pelvis w/wo contrast Status: Acute Priority: Medium (3) History of pulmonary embolism Assessment and Plan: Patient has history of pulmonary embolism in 2015. Patient started taking xarelto but never finished course due to cost. Patient never followed-up with chef assistant Dr Webster due to having to pay out of pocket. Today's Chest CTA showed limited evaluation of segmental/subsegment branches, thus given her hx of PE, which seems to have been located near the site of todays consolidation, we will begin anticoagulation. Imaging: Chest CTA: No evidence of gross central pulmonary embolism. More limited evaluation of the segmental and subsegmental branches secondary to some motion and streak artifact for example a questionable filling defect seen on series 2, image 85 within the right lung as well as within the left lung at the same level may represent some streak artifact. Meds: Lovenox 100mg IVP SC BID Status: Acute Priority: Medium (4) Breast calcification, right Assessment and Plan: Patient reports she underwent biopsy which showed the area is non-cancerous. Imaging: Chest CTA: Lobulated calcifications seen at the lateral aspect of the right breast measuring 6 millimeters. Status: Acute Priority: Medium (5) Prophylactic measure Assessment and Plan: Heart healthy diet SCDs Lovenox 100mg SC BID GI prophylaxis not indicated F/U HgbA1C, ProBNP, Lipid Panel, TSH/Free T4 Status: Acute Priority: Low <Andrey Sherman H - Last Filed: 02/02/18 10:23> Results - Vital Signs Recent Vital Signs: Last Vital Signs Temp 97.6 F 02/02/18 09:03 Pulse 73 02/02/18 09:03 Resp 20 02/02/18 09:03 BP 116/78 02/02/18 09:03 Pulse Ox 98 02/02/18 09:03 - Labs Result Diagrams: 02/01/18 12:36 02/01/18 12:36 Labs: Laboratory Results - last 24 hr 02/01/18 02/01/18 02/01/18 12:36 12:36 12:36 WBC 12.4 H RBC 4.34 Hgb 13.3 Hct 39.1 MCV 90.1 MCH 30.7 MCHC 34.1 RDW 14.2 Plt Count 256 MPV 7.8 Neut % (Auto) 77.0 H Lymph % (Auto) 16.1 L [place] % (Auto) 5.4 Eos % (Auto) 0.7 Baso % (Auto) 0.8 Neut # (Auto) 9.5 H Lymph # (Auto) 2.0 [place] # (Auto) 0.7 Eos # (Auto) 0.1 Baso # (Auto) 0.1 PT 11.8 INR 1.0 APTT 32 D-Dimer, Quantitative 586 H Sodium 143 Potassium 4.2 Chloride 103 Carbon Dioxide 27 Anion Gap 18 BUN 12 Creatinine 0.7 Est GFR ( Amer) > 60 Est GFR (Non-Af Amer) > 60 Random Glucose 104 Calcium 9.4 Total Bilirubin 1.0 AST 74 H D ALT 270 H D Alkaline Phosphatase 369 H D Total Creatine Kinase CK-MB (Mass) Troponin I NT-Pro-B Natriuret Pep 80.2 Total Protein 8.4 H Albumin 4.1 Globulin 4.4 H Albumin/Globulin Ratio 0.9 L Urine Color Urine Clarity Urine pH Ur Specific Etta Urine Protein Urine Glucose (UA) Urine Ketones Urine Blood Urine Nitrate Urine Bilirubin Urine Urobilinogen Ur Leukocyte Esterase Urine WBC (Auto) Urine RBC (Auto) Ur Squamous Epith Cells Urine Bacteria Urine HCG, Qual Influenza Typ A,B (EIA) 02/01/18 02/01/18 02/01/18 13:31 16:45 20:13 WBC RBC Hgb Hct MCV MCH MCHC RDW Plt Count MPV Neut % (Auto) Lymph % (Auto) [place] % (Auto) Eos % (Auto) Baso % (Auto) Neut # (Auto) Lymph # (Auto) [place] # (Auto) Eos # (Auto) Baso # (Auto) PT INR APTT D-Dimer, Quantitative Sodium Potassium Chloride Carbon Dioxide Anion Gap BUN Creatinine Est GFR ( Amer) Est GFR (Non-Af Amer) Random Glucose Calcium Total Bilirubin AST ALT Alkaline Phosphatase Total Creatine Kinase 36 CK-MB (Mass) 0.48 Troponin I < 0.0120 NT-Pro-B Natriuret Pep Total Protein Albumin Globulin Albumin/Globulin Ratio Urine Color Yellow Urine Clarity Clear Urine pH 5.0 Ur Specific Etta 1.016 Urine Protein Negative Urine Glucose (UA) Normal Urine Ketones Negative Urine Blood Negative Urine Nitrate Negative Urine Bilirubin Negative Urine Urobilinogen Normal Ur Leukocyte Esterase Trace Urine WBC (Auto) 5 Urine RBC (Auto) 3 Ur Squamous Epith Cells 1 Urine Bacteria Rare Urine HCG, Qual Negative Influenza Typ A,B (EIA) Negative for flu a/b Attending/Attestation - Attestation I have personally seen and examined this patient.: Yes I have fully participated in the care of the patient.: Yes I have reviewed all pertinent clinical information: Yes Notes (Text): 02/02/18 10:18 Medical attending: Patient was seen and examined by the above note by the resident The patient's family member was present as well I came and saw the patient in ER bed 6. She is able to ambulate in the hallway - however slowly. The CTA done in the ER shows an area along the left pleural periphery lingua area that has a consolidation which maybe infection or a possible PE. The study could not rule out a PE Considering how much pain she was having on the left rib/left flank area - I am concerned that what we are seeing in the lingula area is actually a small peripheral PE. We will give theraputic level of lovenox. We will still cover with IV abx in case this is a pneumonia however I suspect PE. She has actually had a PE some years ago in the past. Also it is possible that perhaphs she has a kidney stone as well - however the UA was negative. We are getting CT of the abdomen and pelvis. thank you Andrey Sherman
[2018-02-01] MEDS ORDERED: Azithromycin 500 MG in Sodium Chloride 0.9% 250 ML IVPB SCH (18:00)
[2018-02-01 20:41] LABS: CK-MB 0.48 ng/mL (0.0-3.38)
[2018-02-01] MEDS: Enoxaparin 100 mg Syringe SC SCH (23:07)
--- NOTE | 2018-02-02 09:04 | CT ---
CT abdomen and pelvis History: Left flank pain. Comparison: 10/27/2017 Technique: Multiple contiguous axial images were performed through the abdomen and pelvis without the use of intravenous contrast. Subsequently, sagittal and coronal reformatted images were obtained. This CT exam was performed using one or more of the following dose reduction techniques: Automated exposure control, adjustment of the mA and/or kV according to patient size, and/or use of iterative reconstruction technique. Findings: Trace bilateral pleural effusions. Prominent consolidative changes at both lung bases. Additional consolidative changes in the lingula. No pericardial effusion. Prominent liver with mild fatty infiltration. 6 millimeter hypodensity in the right hepatic lobe, too small to adequately characterize. Gallbladder appears preserved. Spleen appears preserved. Adrenal glands appear preserved. Pancreas appears preserved. Upper abdominal bowel appears preserved. Right kidney: Wedge shaped area of high attenuation seen within the midpole of the right kidney measuring 7 millimeters suggestive for residual contrast from prior CT angiographic study. Clinical correlation. No calculi or hydronephrosis. Left Kidney: Multiple wedge-shaped areas of high attenuation in the periphery of the left kidney; for example, in the midpole measuring up to 1.5 centimeters suggestive for residual contrast from prior CT angiographic study. Clinical correlation. No gross calculi or hydronephrosis. Urinary bladder is preserved. Heterogeneous uterus and bilateral adnexa. Prominent partially exophytic rounded lesion seen emanating off the posterior aspect of the uterus measuring 2.2 centimeters suggestive for a fibroid lesion. Correlation with pelvic ultrasound would be helpful if clinically indicated. Fecal retention in the colon. Appendix is preserved. Few shotty para-aortic and inguinal lymph nodes. Few shotty mesenteric lymph nodes. Moderate fat containing umbilical hernia. Reticulation within the bilateral anterior abdominal subcutaneous soft tissues. Degenerative changes in the spine. Posterior disc osteophyte complex at the L2-3 level. Impression: 1. Wedge shaped area of high attenuation seen within the midpole of the right kidney measuring 7 millimeters suggestive for residual contrast from prior CT angiographic study. Clinical correlation. No calculi or hydronephrosis. 2. Multiple wedge-shaped areas of high attenuation in the periphery of the left kidney; for example, in the midpole measuring up to 1.5 centimeters suggestive for residual contrast from prior CT angiographic study. Clinical correlation. No gross calculi or hydronephrosis. 3. Prominent partially exophytic rounded lesion seen emanating off the posterior aspect of the uterus measuring 2.2 centimeters suggestive for a fibroid lesion. Correlation with pelvic ultrasound would be helpful if clinically indicated. 4. Trace bilateral pleural effusions. Prominent consolidative changes at both lung bases. Additional consolidative changes in the lingula. 5. Prominent liver with mild fatty infiltration. 6 millimeter hypodensity in the right hepatic lobe, too small to adequately characterize. 6. Fecal retention in the colon. 7. Moderate fat containing umbilical hernia. 8. Reticulation within the bilateral anterior abdominal subcutaneous soft tissues. 9. Degenerative changes in the spine. Posterior disc osteophyte complex at the L2-3 level.
--- NOTE | 2018-02-02 09:22 | CP.PCM.PN ---
Subjective - Date & Time of Evaluation Date of Evaluation: 02/02/18 Time of Evaluation: 09:00 - Subjective Subjective: Patient was seen and examined by me. She was walking in the hallway very slowly because of the ongoing Left Rib/Left Flank pain. She explains she still has the pain there overnight. The medication simply makes it bearable but when the meds where off it hurts a lot. It hurts for her to take a deep breath. Denied palpitations, denied abdominal pain. Denied fever. She looked uncomfortable walking due to the pain. As mentioned previously this patient has a history of PE a few years ago and was only on anticoagulation for about 1 month before she stopped medication. When she came to the ER yesterday, a CT scan was done and it suggested an area of the left lingula of the lung that could either be a consolidation such as an infection but they could not rule out a peripheral PE. She was not tachycardic but in a lot of Left flank and Left rib pain. We are covering her with abx and also with theraputic dose of lovenox in case this is a peripheral PE which I suspect it is. Objective - Vital Signs/Intake and Output Vital Signs (last 24 hours): Temp Pulse Resp BP Pulse Ox 97.6 F 73 20 116/78 98 02/02/18 09:03 02/02/18 09:03 02/02/18 09:03 02/02/18 09:03 02/02/18 09:03 - Medications Medications: Current Medications Enoxaparin Sodium (Lovenox) 100 mg SC Q12 REPLACED BY [facility] Last Admin: 02/01/18 23:07 Dose: 100 mg Azithromycin 500 mg/ Sodium (Chloride) 250 mls @ 250 mls/hr IVPB Q24H REPLACED BY [facility] PRN Reason: Protocol Last Admin: 02/01/18 18:31 Dose: Not Given Ceftriaxone Sodium (Rocephin Iv 1 Gm Duplex) 50 mls @ 100 mls/hr IVPB DAILY REPLACED BY [facility] PRN Reason: Protocol Ketorolac Tromethamine (Toradol) 30 mg IVP Q6 [facility] Oxycodone HCl (Oxycontin Extended Release Tab) 20 mg PO Q12 REPLACED BY [facility] - Labs Labs: 02/01/18 12:36 02/01/18 12:36 PT 11.8 SECONDS (9.7-12.2) 02/01/18 12:36 INR 1.0 02/01/18 12:36 APTT 32 SECONDS (21-34) 02/01/18 12:36 - Constitutional Appears: No Acute Distress - Head Exam Head Exam: ATRAUMATIC, NORMAL INSPECTION, NORMOCEPHALIC - Eye Exam Eye Exam: EOMI, Normal appearance - ENT Exam ENT Exam: Mucous Membranes Moist - Neck Exam Neck Exam: Normal Inspection - Respiratory Exam Respiratory Exam: Clear to Ausculation Bilateral, NORMAL BREATHING PATTERN Additional comments: Patient has left pain when taking deep breath in. - Cardiovascular Exam Cardiovascular Exam: REGULAR RHYTHM - GI/Abdominal Exam GI & Abdominal Exam: Soft, Normal Bowel Sounds - Back Exam Back Exam: CVA tenderness (L), tenderness Additional comments: She still has tenderness L chest rib area. Not made worse with left flank tapping. It just hurts all the time - Neurological Exam Neurological Exam: Alert, Awake, Oriented x3 Neuro motor strength exam: Left Upper Extremity: 4 (She has pain raising left arm > 90 degree), Right Upper Extremity: 5, Left Lower Extremity: 5, Right Lower Extremity: 5 - Psychiatric Exam Psychiatric exam: Normal Affect, Normal Mood - Skin Skin Exam: Normal Color, Warm Additional comments: No skin lesions on that left chest area Assessment and Plan - Assessment and Plan (Free Text) Assessment: Assessment & Plan (1) Pulmonary embolism - she has a history of PE in the past Assessment and Plan: 02/02/2018: The patient had CTA in the ER due to high D-Dimer. The patient CTA showed left lingular change which maybe either infection or PE. Considering how much pain she is in this probably is a peripheral PE. We are covering her with lovenox for the time being. We will check an Echo to evaluate the R side of heart Patient has history of pulmonary embolism in 2014. Patient started taking xarelto but never finished course due to cost. 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 Today's Chest CTA showed limited evaluation of segmental/subsegment branches, thus given her hx of PE, which seems to have been located near the site of todays consolidation, we will begin anticoagulation. Imaging: Chest CTA: No evidence of gross central pulmonary embolism. More limited evaluation of the segmental and subsegmental branches secondary to some motion and streak artifact for example a questionable filling defect seen on series 2, image 85 within the right lung as well as within the left lung at the same level may represent some streak artifact. Meds: Lovenox 100mg IVP SC BID (2) Pneumonia involving left lung Assessment and Plan: 02/02/2018: Continue with IV abx for another day until cultures return. I still think this is a peripheral PE Chest CTA shows areas of consolidation however it seems CTA from 2015 showed distal pulmonary emboli in the same region - and today's chest CTA had some motion and streak artifact which made it difficult to entirely rule out a distal segmental/subsegmental PE. Thus we will treat for PNA but will also treat for PE. Mild Leukocytosis, afebrile, Pain upper left flank, deep pressure pain, not tender to palpation, worse with inspiration Chest CTA: Mild focal areas of nodular consolidation seen within the lingula as well as the anterior aspect of the left lower lobe. Will order CT abd/pelvis to rule out abdominal etiologies to her left flank pain Meds: Rocephin 1g IVP QD Azithromycin 500mg IVP QD Toradol 30mg SC Q6H PRN for severe pain (3) Fatty liver Assessment and Plan: Elevated AST/ALT/Alk Phos Enzymes possibly elevated due to stress response Imaging: Chest CTA: Prominent liver with a suggestion of fatty infiltration F/U CT abd/pelvis w/wo contrast (4) Breast calcification, right Assessment and Plan: 02/02: In the ER I inspected the left breast with exam she did not have a mass of left area Patient reports underwent biopsy which showed the area is non-cancerous. Imaging: Chest CTA: Lobulated calcifications seen at the lateral aspect of the right breast measuring 6 millimeters. (5) Prophylactic measure Assessment and Plan: Heart healthy diet SCDs Lovenox 100mg SC BID GI prophylaxis not indicated F/U HgbA1C, ProBNP, Lipid Panel, TSH/Free T4
[2018-02-02] MEDS: Enoxaparin 100 mg Syringe SC SCH ×2 (09:41→21:51)
[2018-02-02] MEDS: oxyCODONE 20 mg ER Tab (oxyCONTIN) PO SCH ×2 (09:52→21:52)
[2018-02-02] MEDS ORDERED: cefTRIAXone IV 1 gm in Dextros 50 ML IVPB SCH (10:00)
[2018-02-02 12:02] LABS: ALB/GLOB RATIO 0.8 (1.0-2.1); ALBUMIN 3.6 g/dL (3.5-5.0); ALT/SGPT 25 U/L (9-52); AST/SGOT 58 U/L (14-36); BLOOD UREA NITROGEN 8 mg/dL (7-17); CALCIUM 8.9 mg/dl (8.6-10.4); GFR AFRICAN-AMERICAN > 60; GFR NON-AFRICAN AMERICAN > 60; HDL CHOLESTEROL 27 mg/dL (30-70)
[2018-02-02 12:07] LABS: B-TYPE NATRIURETIC PEPTIDE 1600 pg/mL (0-900)
[2018-02-02 12:08] LABS: LDL CHOLESTEROL 48 mg/dL (0-129)
[2018-02-02 12:14] LABS: T4 9.71 ug/dL (5.5-11.0)
[2018-02-02 13:49] LABS: BASO # 0.1 K/uL (0.0-0.2); BASO % 0.6 % (0.0-2.0); EOS # 0.1 K/uL (0.0-0.7); EOS % 1.3 % (0.0-4.0); HEMOGLOBIN 11.7 g/dL (11.0-16.0); LYMPH # 2.3 K/uL (1.0-4.3); LYMPH % 23.4 % (20.0-40.0); MEAN CORPUSCULAR HEMOGLOBIN 30.6 pg (27.0-31.0); MEAN CORPUSCULAR HGB CONC 33.6 g/dL (33.0-37.0); MEAN PLATELET VOLUME 7.7 fL (7.2-11.7); MONO # 0.8 K/uL (0.0-0.8); MONO % 7.7 % (0.0-10.0); NEUT # 6.5 K/uL (1.8-7.0); RBC 3.82 Mil/uL (3.80-5.20); RED CELL DISTRIBUTION WIDTH 14.5 % (11.5-14.5); WHITE BLOOD COUNT 9.7 K/uL (4.8-10.8)
[2018-02-03 07:35] LABS: BASO # 0.1 K/uL (0.0-0.2); EOS # 0.2 K/uL (0.0-0.7); EOS % 2.1 % (0.0-4.0); HEMOGLOBIN 11.5 g/dL (11.0-16.0); LYMPH # 2.2 K/uL (1.0-4.3); LYMPH % 23.9 % (20.0-40.0); MEAN CELL VOLUME 90.9 fL (81.0-99.0); MEAN CORPUSCULAR HEMOGLOBIN 31.3 pg (27.0-31.0); MEAN CORPUSCULAR HGB CONC 34.4 g/dL (33.0-37.0); MEAN PLATELET VOLUME 7.5 fL (7.2-11.7); MONO # 0.7 K/uL (0.0-0.8); MONO % 7.1 % (0.0-10.0); NEUT # 6.2 K/uL (1.8-7.0); NEUT % 65.9 % (50.0-75.0); RBC 3.68 Mil/uL (3.80-5.20); RED CELL DISTRIBUTION WIDTH 13.7 % (11.5-14.5); WHITE BLOOD COUNT 9.4 K/uL (4.8-10.8)
[2018-02-03 08:16] LABS: ALB/GLOB RATIO 0.9 (1.0-2.1); ALBUMIN 3.3 g/dL (3.5-5.0); ALT/SGPT 119 U/L (9-52); AST/SGOT 31 U/L (14-36); BLOOD UREA NITROGEN 17 mg/dL (7-17); CALCIUM 8.9 mg/dl (8.6-10.4); GFR AFRICAN-AMERICAN > 60; GFR NON-AFRICAN AMERICAN > 60
--- NOTE | 2018-02-03 09:17 | CP.PCM.PN ---
Addendum entered and electronically signed by Imer Pozo DO 02/03/18 15: 20: Original Note: <Imer Pozo - Last Filed: 02/03/18 14:56> Subjective - Date & Time of Evaluation Date of Evaluation: 02/03/18 Time of Evaluation: 09:15 - Subjective Subjective: Patient seen and examined at bedside. Still complaining of pain in her back but looks comfortable. States at home she does not think she can take care of herself. Will get social work involved. Objective - Vital Signs/Intake and Output Vital Signs (last 24 hours): Temp Pulse Resp BP Pulse Ox 97.5 F L 69 20 105/71 96 02/03/18 08:08 02/03/18 08:08 02/03/18 08:08 02/03/18 08:08 02/03/18 08:08 - Medications Medications: Current Medications Enoxaparin Sodium (Lovenox) 100 mg SC Q12 [facility] Last Admin: 02/02/18 21:51 Dose: 100 mg Ketorolac Tromethamine (Toradol) 30 mg IVP Q6H [facility] Last Admin: 02/03/18 04:37 Dose: 30 mg Oxycodone HCl (Oxycontin Extended Release Tab) 20 mg PO Q12 [facility] Last Admin: 02/02/18 21:52 Dose: 20 mg - Labs Labs: 02/03/18 07:26 02/03/18 07:26 PT 11.8 SECONDS (9.7-12.2) 02/01/18 12:36 INR 1.0 02/01/18 12:36 APTT 32 SECONDS (21-34) 02/01/18 12:36 - Constitutional Appears: Well - Head Exam Head Exam: ATRAUMATIC, NORMAL INSPECTION, NORMOCEPHALIC - Eye Exam Eye Exam: EOMI, Normal appearance, PERRL Pupil Exam: NORMAL ACCOMODATION, PERRL - ENT Exam ENT Exam: Mucous Membranes Moist, Normal Exam - Neck Exam Neck Exam: Full ROM, Normal Inspection. absent: Lymphadenopathy - Respiratory Exam Respiratory Exam: Clear to Ausculation Bilateral, NORMAL BREATHING PATTERN - Cardiovascular Exam Cardiovascular Exam: REGULAR RHYTHM, +S1, +S2. absent: Murmur - GI/Abdominal Exam GI & Abdominal Exam: Soft, Normal Bowel Sounds. absent: Tenderness - Extremities Exam Extremities Exam: Full ROM, Normal Capillary Refill, Normal Inspection. absent : Joint Swelling, Pedal Edema - Back Exam Back Exam: NORMAL INSPECTION - Neurological Exam Neurological Exam: Alert, Awake, CN II-XII Intact, Normal Gait, Oriented x3 - Psychiatric Exam Psychiatric exam: Normal Affect, Normal Mood - Skin Skin Exam: Dry, Intact, Normal Color, Warm Assessment and Plan (1) History of pulmonary embolism Assessment & Plan: * Patient has history of pulmonary embolism in 2015. * Chest CTA: No evidence of gross central pulmonary embolism. More limited evaluation of the segmental and subsegmental branches secondary to some motion and streak artifact for example a questionable filling defect seen on series 2, image 85 within the right lung as well as within the left lung at the same level may represent some streak artifact. * Lovenox 100mg IVP SC BID * Echo Pending Status: Chronic (2) Pneumonia involving left lung Assessment & Plan: Chest CTA: Mild focal areas of nodular consolidation seen within the lingula as well as the anterior aspect of the left lower lobe. CT abd/pelvis - Possible fibroid uterus, residual contrast in kidneys, hypodensity in liver lobe to small to characterize, trace pleural effusions Rocephin 1g IVP QD Azithromycin 500mg IVP QD Toradol 30mg SC Q6H PRN for severe pain F/U cultures Status: Acute (3) Fatty liver Assessment & Plan: Liver enzymes trending down Status: Acute (4) Prophylactic measure Assessment & Plan: therapeutic lovenox Status: Acute <Ceci Pop - Last Filed: 02/03/18 19:03> Objective - Vital Signs/Intake and Output Vital Signs (last 24 hours): Temp Pulse Resp BP Pulse Ox 98.0 F 93 H 20 129/84 99 02/03/18 15:58 02/03/18 15:58 02/03/18 15:58 02/03/18 15:58 02/03/18 15:58 - Labs Labs: 02/03/18 07:26 02/03/18 07:26 PT 11.8 SECONDS (9.7-12.2) 02/01/18 12:36 INR 1.0 02/01/18 12:36 APTT 32 SECONDS (21-34) 02/01/18 12:36 Attending/Attestation - Attestation I have personally seen and examined this patient.: Yes I have fully participated in the care of the patient.: Yes I have reviewed all pertinent clinical information, including history, physical exam and plan: Yes Notes (Text): Patient was seen and examined this morning Complaining of left back pain with breathing I agree with the residents documentation 02/03/18 19:02
--- NOTE | 2018-02-03 10:20 | US ---
Abdominal ultrasound History: Abdominal pain. Transaminitis. Comparison: CT dated 02/02/2018 Technique: Real-time sonography was performed through the abdomen. Findings: Liver: 16.9 centimeters in length. Increased echogenicity of the hepatic parenchymal cortex suggestive for fatty infiltration versus hepatic parenchymal disease. Clinical correlation. Gallbladder: Cholelithiasis. Calculi measure up to 1.7 centimeters. Normal wall thickness of 2 millimeters. Negative sonographic Looney's sign. Common bile duct measures 6 millimeters, mildly prominent. Pancreas not well visualized. Spleen measures 11.4 centimeters in length, within normal limits. Visualized aorta and IVC are preserved. Right kidney: 12.3 x 5.3 x 5.7 centimeters. No calculi or hydronephrosis. Left Kidney: 12.2 x 5.8 x 5 5 centimeters. No calculi or hydronephrosis. Impression: 1. Cholelithiasis with gallbladder calculi measuring up to 1.7 centimeters. Normal wall thickness. Negative sonographic Looney's sign. 2. Prominent liver with diffuse increased echogenicity of the hepatic parenchymal cortex suggestive for fatty infiltration versus hepatic parenchymal disease. Clinical correlation. 3. Mild prominence of the common bile duct measuring up to 6 millimeters. 4. Pancreas not well visualized. Clinical correlation.
[2018-02-03] MEDS: oxyCODONE 20 mg ER Tab (oxyCONTIN) PO SCH (10:28)
[2018-02-03] MEDS: Enoxaparin 100 mg Syringe SC SCH (10:30)
[2018-02-03 13:32] LABS: HEPATITIS B SURFACE AG Negative (NEGATIVE)
[2018-02-03 13:42] LABS: HEPATITIS A IGM NEGATIVE (NEGATIVE); HEPATITIS B CORE AB NEGATIVE (NEGATIVE)
[2018-02-03 13:50] LABS: HEPATITIS C ANTIBODY NEGATIVE (NEGATIVE)
--- NOTE | 2018-02-03 15:20 | CP.PCM.DIS ---
Addendum entered and electronically signed by Imer Pozo DO 02/03/18 17: 02: Patient will need to follow up in clinic for Pelvic US for possible fibroid uterus, LFTs and GI consult for elevated Tbili Original Note: <Imer Pozo - Last Filed: 02/03/18 15:30> Provider - Provider Date of Admission: 02/01/18 16:07 Attending physician: Fabian Cardoza MD Primary care physician: [facility] Consults: none Time Spent in preparation of Discharge (in minutes): 45 Diagnosis - Discharge Diagnosis (1) History of pulmonary embolism Status: Chronic Priority: Medium (2) Pneumonia involving left lung Status: Acute Priority: High (3) Fatty liver Status: Acute Priority: Medium (4) Prophylactic measure Status: Acute Priority: Low Hospital Course - Lab Results Lab Results: Micro Results 02/01/18 20:15 Blood Blood Culture - Preliminary NO GROWTH AFTER 24 HOURS 02/01/18 20:15 Blood Blood Culture - Preliminary NO GROWTH AFTER 24 HOURS Most Recent Lab Values WBC 9.4 K/uL (4.8-10.8) 02/03/18 07:26 RBC 3.68 Mil/uL (3.80-5.20) L 02/03/18 07:26 Hgb 11.5 g/dL (11.0-16.0) 02/03/18 07:26 Hct 33.5 % (34.0-47.0) L 02/03/18 07:26 MCV 90.9 fL (81.0-99.0) 02/03/18 07:26 MCH 31.3 pg (27.0-31.0) H 02/03/18 07:26 MCHC 34.4 g/dL (33.0-37.0) 02/03/18 07:26 RDW 13.7 % (11.5-14.5) 02/03/18 07:26 Plt Count 231 K/uL (130-400) 02/03/18 07:26 MPV 7.5 fL (7.2-11.7) 02/03/18 07:26 Neut % (Auto) 65.9 % (50.0-75.0) 02/03/18 07:26 Lymph % (Auto) 23.9 % (20.0-40.0) 02/03/18 07:26 Marshall % (Auto) 7.1 % (0.0-10.0) 02/03/18 07:26 Eos % (Auto) 2.1 % (0.0-4.0) 02/03/18 07: Baso % (Auto) 1.0 % (0.0-2.0) 02/03/18 07:26 Neut # (Auto) 6.2 K/uL (1.8-7.0) 02/03/18 07: Lymph # (Auto) 2.2 K/uL (1.0-4.3) 02/03/18 07:26 Marshall # (Auto) 0.7 K/uL (0.0-0.8) 02/03/18 07: Eos # (Auto) 0.2 K/uL (0.0-0.7) 02/03/18 07: Baso # (Auto) 0.1 K/uL (0.0-0.2) 02/03/18 07:26 PT 11.8 SECONDS (9.7-12.2) 02/01/18 12:36 INR 1.0 02/01/18 12:36 APTT 32 SECONDS (21-34) 02/01/18 12:36 D-Dimer, Quantitative 586 ng/mlDDU (0-243) H 02/01/18 12:36 Sodium 141 mmol/L (132-148) 02/03/18 07:26 Potassium 4.7 mmol/L (3.6-5.2) 02/03/18 07:26 Chloride 103 mmol/L (98-107) 02/03/18 07:26 Carbon Dioxide 28 mmol/L (22-30) 02/03/18 07:26 Anion Gap 15 (10-20) 02/03/18 07:26 BUN 17 mg/dL (7-17) 02/03/18 07:26 Creatinine 0.8 mg/dL (0.7-1.2) 02/03/18 07:26 Est GFR ( Amer) > 60 02/03/18 07:26 Est GFR (Non-Af Amer) > 60 02/03/18 07:26 Random Glucose 111 mg/dL (65-105) H 02/03/18 07:26 Hemoglobin A1c 5.8 % (4.2-6.5) 02/02/18 13:41 Calcium 8.9 mg/dl (8.6-10.4) 02/03/18 07:26 Total Bilirubin 0.6 mg/dL (0.2-1.3) 02/03/18 07:26 AST 31 U/L (14-36) 02/03/18 07:26 ALT 119 U/L (9-52) H D 02/03/18 07:26 Alkaline Phosphatase 249 U/L (38-126) H D 02/03/18 07:26 Total Creatine Kinase 36 U/L (30-135) 02/01/18 20:13 CK-MB (Mass) 0.48 ng/mL (0.0-3.38) 02/01/18 20:13 Troponin I < 0.0120 ng/mL (0.00-0.120) 02/01/18 20:13 NT-Pro-B Natriuret Pep 1600 pg/mL (0-900) H 02/02/18 11:30 Total Protein 7.0 g/dL (6.3-8.3) 02/03/18 07:26 Albumin 3.3 g/dL (3.5-5.0) L 02/03/18 07:26 Globulin 3.6 gm/dL (2.2-3.9) 02/03/18 07:26 Albumin/Globulin Ratio 0.9 (1.0-2.1) L 02/03/18 07:26 Triglycerides 99 mg/dL (0-149) D 02/02/18 11:30 Cholesterol 107 mg/dL (0-199) 02/02/18 11:30 LDL Cholesterol Direct 48 mg/dL (0-129) 02/02/18 11:30 HDL Cholesterol 27 mg/dL (30-70) L 02/02/18 11:30 Thyroxine (T4) 9.71 ug/dL (5.5-11.0) 02/02/18 11:30 TSH 3rd Generation 5.20 mIU/L (0.46-4.68) H 02/02/18 11:30 Urine Color Yellow (YELLOW) 02/01/18 13:31 Urine Clarity Clear (Clear) 02/01/18 13:31 Urine pH 5.0 (5.0-8.0) 02/01/18 13:31 Ur Specific [place] 1.016 (1.003-1.030) 02/01/18 13:31 Urine Protein Negative mg/dL (NEGATIVE) 02/01/18 13:31 Urine Glucose (UA) Normal mg/dL (Normal) 02/01/18 13:31 Urine Ketones Negative mg/dL (NEGATIVE) 02/01/18 13:31 Urine Blood Negative (NEGATIVE) 02/01/18 13:31 Urine Nitrate Negative (NEGATIVE) 02/01/18 13:31 Urine Bilirubin Negative (NEGATIVE) 02/01/18 13:31 Urine Urobilinogen Normal mg/dL (0.2-1.0) 02/01/18 13:31 Ur Leukocyte Esterase Trace Griselda/uL (Negative) 02/01/18 13:31 Urine WBC (Auto) 5 /hpf (0-5) 02/01/18 13:31 Urine RBC (Auto) 3 /hpf (0-3) 02/01/18 13:31 Ur Squamous Epith Cells 1 /hpf (0-5) 02/01/18 13:31 Urine Bacteria Rare (<OCC) 02/01/18 13:31 Urine HCG, Qual Negative (NEGATIVE) 02/01/18 13:31 Hepatitis A IgM Ab Negative (NEGATIVE) 02/03/18 12:43 Hep Bs Antigen Negative (NEGATIVE) 02/03/18 12:43 Hep B Core IgM Ab Negative (NEGATIVE) 02/03/18 12:43 Hepatitis C Antibody Negative (NEGATIVE) 02/03/18 12:43 Influenza Typ A,B (EIA) Negative for flu a/b (NEGATIVE) 02/01/18 16:45 - Hospital Course Hospital Course: 53 year old female with a past medical history of Pulmonary Embolism (2014) who presents to the ED for evaluation of left upper back pain which has been intermittent for 3 months. The pain started progressing towards her left upper back over the past 3-4 days. Symptoms are worse with movement and deep inspiration. Patient describes the pain as dull and throbbing. She rates the pain 7/10. She reports pain is so severe it causes her SOB. Patient states she has been taking Naproxen with minimal relief. Patient states she has been evaluated in the clinic and sent to specialist, but the cost is very high and she has no insurance. She states the current pain is not similiar to when she had the PE. She denies fever, chills, headache, nausea, vomiting. Patient also reports that she has a right breast mass, for which she underwent biopsy which showed the area is non-cancerous. She was last seen in the ER on 01/09/18 with similar symptoms, at that time she was diagnosed with a UTI and sent home on cipro and ibuprofen. patient was started on therapeutic Lovenox. CTA did not show PE but distal vessels were not well visualized and given patient presentation it is likely still a PE. Patient may still have pneumonia given equivocal findings so was started on antibiotics. Echo is still pending but can be followed up as out patient. Patient will be discharged to follow up in [facility]. She will be put on eliquis 5mg PO BID and Zithromax for an additional 4 days. She was given a coupon for free 30days of eliquis. She was instructed to follow up echo results at [facility] Discharge Exam - Head Exam Head Exam: ATRAUMATIC, NORMAL INSPECTION, NORMOCEPHALIC - Eye Exam Eye Exam: EOMI, Normal appearance, PERRL Pupil Exam: NORMAL ACCOMODATION, PERRL - GI/Abdominal Exam GI & Abdominal Exam: Normal Bowel Sounds - Neurological Exam Neurological exam: Alert, CN II-XII Intact, Normal Gait, Oriented x3, Reflexes Normal - Psychiatric Exam Psychiatric exam: Normal Affect, Normal Mood - Skin Skin Exam: Dry, Intact, Normal Color, Warm Discharge Plan - Discharge Medications Prescriptions: Apixaban [Eliquis] 5 mg PO BID #60 tablet Cefpodoxime [Vantin] 200 mg PO BID 10 Days tab Ketorolac Tromethamine [Toradol] 10 mg PO Q6H PRN 5 Days tab PRN Reason: Pain, Moderate (4-7) - Follow Up Plan Condition: STABLE Disposition: HOME/ ROUTINE Instructions: Heart Healthy Diet, Azithromycin (Systemic), Ketorolac (Systemic) , Pneumonia, Adult (DC), Pulmonary Embolism (Blood Clot in the Lungs) (DC), Upper Back Pain (DC), Apixaban Additional Instructions: Please take Eliquis 5mg by mouth twice a day. Please call the number attached to the pamphlet and take card to nearest pharmacy. Please follow up in the [facility] in 7-10 days. Please call to make an appointment . The address is [address] [place] [address] Please follow up ECHO results at the clinic Please come back to ED if symptoms worsen <Ceci Pop - Last Filed: 02/03/18 19:07> Provider - Provider Date of Admission: 02/01/18 16:07 Attending physician: Fabian Cardoza MD Hospital Course - Lab Results Lab Results: Micro Results 02/01/18 20:15 Blood Blood Culture - Preliminary NO GROWTH AFTER 24 HOURS 02/01/18 20:15 Blood Blood Culture - Preliminary NO GROWTH AFTER 24 HOURS Most Recent Lab Values WBC 9.4 K/uL (4.8-10.8) 02/03/18 07:26 RBC 3.68 Mil/uL (3.80-5.20) L 02/03/18 07:26 Hgb 11.5 g/dL (11.0-16.0) 02/03/18 07:26 Hct 33.5 % (34.0-47.0) L 02/03/18 07:26 MCV 90.9 fL (81.0-99.0) 02/03/18 07:26 MCH 31.3 pg (27.0-31.0) H 02/03/18 07:26 MCHC 34.4 g/dL (33.0-37.0) 02/03/18 07:26 RDW 13.7 % (11.5-14.5) 02/03/18 07:26 Plt Count 231 K/uL (130-400) 02/03/18 07:26 MPV 7.5 fL (7.2-11.7) 02/03/18 07:26 Neut % (Auto) 65.9 % (50.0-75.0) 02/03/18 07:26 Lymph % (Auto) 23.9 % (20.0-40.0) 02/03/18 07:26 Marshall % (Auto) 7.1 % (0.0-10.0) 02/03/18 07:26 Eos % (Auto) 2.1 % (0.0-4.0) 02/03/18 07:26 Baso % (Auto) 1.0 % (0.0-2.0) 02/03/18 07:26 Neut # (Auto) 6.2 K/uL (1.8-7.0) 02/03/18 07:26 Lymph # (Auto) 2.2 K/uL (1.0-4.3) 02/03/18 07:26 Marshall # (Auto) 0.7 K/uL (0.0-0.8) 02/03/18 07:26 Eos # (Auto) 0.2 K/uL (0.0-0.7) 02/03/18 07:26 Baso # (Auto) 0.1 K/uL (0.0-0.2) 02/03/18 07:26 PT 11.8 SECONDS (9.7-12.2) 02/01/18 12:36 INR 1.0 02/01/18 12:36 APTT 32 SECONDS (21-34) 02/01/18 12:36 D-Dimer, Quantitative 586 ng/mlDDU (0-243) H 02/01/18 12:36 Sodium 141 mmol/L (132-148) 02/03/18 07:26 Potassium 4.7 mmol/L (3.6-5.2) 02/03/18 07:26 Chloride 103 mmol/L (98-107) 02/03/18 07:26 Carbon Dioxide 28 mmol/L (22-30) 02/03/18 07:26 Anion Gap 15 (10-20) 02/03/18 07:26 BUN 17 mg/dL (7-17) 02/03/18 07:26 Creatinine 0.8 mg/dL (0.7-1.2) 02/03/18 07:26 Est GFR ( Amer) > 60 02/03/18 07:26 Est GFR (Non-Af Amer) > 60 02/03/18 07:26 Random Glucose 111 mg/dL (65-105) H 02/03/18 07:26 Hemoglobin A1c 5.8 % (4.2-6.5) 02/02/18 13:41 Calcium 8.9 mg/dl (8.6-10.4) 02/03/18 07:26 Total Bilirubin 0.6 mg/dL (0.2-1.3) 02/03/18 07:26 AST 31 U/L (14-36) 02/03/18 07:26 ALT 119 U/L (9-52) H D 02/03/18 07:26 Alkaline Phosphatase 249 U/L (38-126) H D 02/03/18 07:26 Total Creatine Kinase 36 U/L (30-135) 02/01/18 20:13 CK-MB (Mass) 0.48 ng/mL (0.0-3.38) 02/01/18 20:13 Troponin I < 0.0120 ng/mL (0.00-0.120) 02/01/18 20:13 NT-Pro-B Natriuret Pep 1600 pg/mL (0-900) H 02/02/18 11:30 Total Protein 7.0 g/dL (6.3-8.3) 02/03/18 07:26 Albumin 3.3 g/dL (3.5-5.0) L 02/03/18 07:26 Globulin 3.6 gm/dL (2.2-3.9) 02/03/18 07:26 Albumin/Globulin Ratio 0.9 (1.0-2.1) L 02/03/18 07:26 Triglycerides 99 mg/dL (0-149) D 02/02/18 11:30 Cholesterol 107 mg/dL (0-199) 02/02/18 11:30 LDL Cholesterol Direct 48 mg/dL (0-129) 02/02/18 11:30 HDL Cholesterol 27 mg/dL (30-70) L 02/02/18 11:30 Thyroxine (T4) 9.71 ug/dL (5.5-11.0) 02/02/18 11:30 TSH 3rd Generation 5.20 mIU/L (0.46-4.68) H 02/02/18 11:30 Urine Color Yellow (YELLOW) 02/01/18 13:31 Urine Clarity Clear (Clear) 02/01/18 13:31 Urine pH 5.0 (5.0-8.0) 02/01/18 13:31 Ur Specific [place] 1.016 (1.003-1.030) 02/01/18 13:31 Urine Protein Negative mg/dL (NEGATIVE) 02/01/18 13:31 Urine Glucose (UA) Normal mg/dL (Normal) 02/01/18 13:31 Urine Ketones Negative mg/dL (NEGATIVE) 02/01/18 13:31 Urine Blood Negative (NEGATIVE) 02/01/18 13:31 Urine Nitrate Negative (NEGATIVE) 02/01/18 13:31 Urine Bilirubin Negative (NEGATIVE) 02/01/18 13:31 Urine Urobilinogen Normal mg/dL (0.2-1.0) 02/01/18 13:31 Ur Leukocyte Esterase Trace Griselda/uL (Negative) 02/01/18 13:31 Urine WBC (Auto) 5 /hpf (0-5) 02/01/18 13:31 Urine RBC (Auto) 3 /hpf (0-3) 02/01/18 13:31 Ur Squamous Epith Cells 1 /hpf (0-5) 02/01/18 13:31 Urine Bacteria Rare (<OCC) 02/01/18 13:31 Urine HCG, Qual Negative (NEGATIVE) 02/01/18 13:31 Hepatitis A IgM Ab Negative (NEGATIVE) 02/03/18 12:43 Hep Bs Antigen Negative (NEGATIVE) 02/03/18 12:43 Hep B Core IgM Ab Negative (NEGATIVE) 02/03/18 12:43 Hepatitis C Antibody Negative (NEGATIVE) 02/03/18 12:43 Influenza Typ A,B (EIA) Negative for flu a/b (NEGATIVE) 02/01/18 16:45 Attending/Attestation - Attestation I have personally seen and examined this patient.: Yes I have fully participated in the care of the patient.: Yes I have reviewed all pertinent clinical information, including history, physical exam and plan: Yes Notes (Text): Patient was given discharge instruction. Discussed about continue her Eliquis, follow medical clinic,follow LFT,may see GI as needed out patient,put patient pelvic US ,continue antibiotics and follow echo report as an out pt. patient was asked to reduce fat intake and loose weight. plan discussed with her sister at bedside I agree with the resident's documentation 02/03/18 19:03
[2018-02-03 15:59] VITALS: BP 129/84; PULSE 93; TEMP 98; O2SAT 99
--- NOTE | 2018-02-04 03:02 | CARD ---
APPROVED REPORT EXAM: Two-dimensional and M-mode echocardiogram with Doppler and color Doppler. Other Information Quality : GoodRhythm : INDICATION Dyspnea Pulmonary Embolism 2D DIMENSIONS IVSd0.9 (0.7-1.1cm)LVDd4.9 (3.9-5.9cm) PWd0.8 (0.7-1.1cm)LVDs3.3 (2.5-4.0cm) FS (%) 32.7 %LVEF (%)61.0 (>50%) M-Mode DIMENSIONS Left Atrium (MM)3.91 (2.5-4.0cm)Aortic Root3.20 (2.2-3.7cm) Aortic Cusp Exc.2.33 (1.5-2.0cm) Mitral Valve MV E Tasqrnnh247.4cm/sMV A Rofzhxyr23.5cm/sE/A ratio1.1 TDI E/Lateral E'0.0E/Medial E'0.0 Tricuspid Valve TR Peak [id number]/sTR Peak Gr.25mmHg LEFT VENTRICLE The left ventricle is normal size. There is normal left ventricular wall thickness. Left ventricle systolic function is normal. The Ejection Fraction is 60-65%. There is normal LV segmental wall motion. The left ventricular diastolic function is normal. No left ventricle thrombus noted on this study. RIGHT VENTRICLE The right ventricle is normal size. The right ventricular systolic function is normal. ATRIA The left atrium size is normal. The right atrium size is normal. AORTIC VALVE The aortic valve is mildly sclerotic. The aortic valve is trileaflet. No aortic regurgitation is present. There is no aortic valvular stenosis. There is no aortic valvular vegetation. MITRAL VALVE Mitral annular calcification is mild. There is no evidence of mitral valve prolapse. There is no mitral valve stenosis. Mitral regurgitation is trace to mild. TRICUSPID VALVE The tricuspid valve is normal in structure. There is mild tricuspid regurgitation. Right ventricular systolic pressure is estimated at 30-40 mmHg. There is no pulmonary hypertension. There is no tricuspid valve prolapse or vegetation. There is no tricuspid valve stenosis. PULMONIC VALVE The pulmonary valve is normal in structure. There is trace pulmonic valvular regurgitation. There is no pulmonic valvular stenosis. GREAT VESSELS The aortic root is normal in size. The IVC is normal in size and collapses >50% with inspiration. PERICARDIAL EFFUSION There is no pericardial effusion. There is no pleural effusion. <Conclusion> The left ventricle is normal size. Left ventricle systolic function is normal. The Ejection Fraction is 60-65%. The left ventricular diastolic function is normal. The right ventricle is normal size. The right ventricular systolic function is normal. The left atrium size is normal. The right atrium size is normal. Mitral regurgitation is trace to mild. There is trace pulmonic valvular regurgitation. There is mild tricuspid regurgitation.
== END 2018-02-03 17:10 | disposition home or self-care (01) | DRG 541 ==
LOC: C.ER 11:32 → C.9E 16:07 → C.3T 17:17 → C.9E 17:48 → C.6T 17:59
PROVIDERS: ADMIT Family Medicine; ATTEND Family Medicine
DX: I26.99 Other pulmonary embolism without acute cor pulmonale (principal); J18.9 Pneumonia, unspecified organism; I10 Essential (primary) hypertension; K21.9 Gastro-esophageal reflux disease without esophagitis; K76.0 Fatty (change of) liver, not elsewhere classified

== ENCOUNTER 2018-05-12 09:57 | Emergency (ER) | payer MEDICAID, OTHER ==
[2018-05-12 09:57] VITALS: BMI 40.8
[2018-05-12 10:09] VITALS: O2SAT 98
--- NOTE | 2018-05-12 10:36 | C.PDOC ---
History Of Present Illness 53 year old female with no PMHx presents to the ER with a complaint of back pain and abdominal pain for the past five month that has worsened over the past few days. Patient had extensive workup for same and is following in clinic. recommended to go to pain management, but patient has not yet followed up. 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 Denies fever, chills, nausea, or vomiting. Time Seen by Provider: 05/12/18 10:24 Chief Complaint (Nursing): Medical Clearance History Per: Patient History/Exam Limitations: no limitations Onset/Duration Of Symptoms: Days Current Symptoms Are (Timing): Still Present Location Of Pain/Discomfort: Diffuse Quality Of Discomfort: Unable To Describe Associated Symptoms: Back Pain. denies: Fever, Chills, Nausea, Vomiting Exacerbating Factors: None Alleviating Factors: None Recent travel outside of the [place]: No Abnormal Vaginal Bleeding: No Past Medical History Reviewed: Historical Data, Nursing Documentation, Vital Signs Vital Signs: Last Vital Signs Temp 97.4 F L 05/12/18 10:05 Pulse 90 05/12/18 10:05 Resp 18 05/12/18 10:05 BP Pulse Ox 98 05/12/18 10:42 - Medical History PMH: HTN, Pneumonia, Pulmonary Embolism Family History: States: Unknown Family Hx - Social History Hx Tobacco Use: No Hx Alcohol Use: No Hx Substance Use: No - Immunization History Hx Tetanus Toxoid Vaccination: No Hx Influenza Vaccination: No Hx Pneumococcal Vaccination: No Review Of Systems Constitutional: Negative for: Fever, Chills Cardiovascular: Negative for: Chest Pain, Palpitations Respiratory: Negative for: Cough, Shortness of Breath Gastrointestinal: Positive for: Abdominal Pain. Negative for: Nausea, Vomiting Genitourinary: Negative for: Dysuria, Hematuria Musculoskeletal: Positive for: Back Pain Physical Exam - Physical Exam Appears: Non-toxic Skin: Normal Color, Warm, Dry Head: Atraumatic, Normacephalic Eye(s): bilateral: Normal Inspection Oral Mucosa: Moist Chest: Symmetrical, No Tenderness Cardiovascular: Rhythm Regular Respiratory: Normal Breath Sounds, No Rales, No Rhonchi, No Wheezing Gastrointestinal/Abdominal: Soft, Tenderness (Diffuse), No Guarding, No Rebound , Other (Obese) Back: No Vertebral Tenderness, No Paraspinal Tenderness Extremity: Normal ROM (x4) Neurological/Psych: Oriented x3, Normal Speech ED Course And Treatment O2 Sat by Pulse Oximetry: 98 (Room air) Pulse Ox Interpretation: Normal Medical Decision Making Medical Decision Making: Plan: * Tylenol * Motrin * Lidoderm Disposition - Disposition Disposition: HOME/ ROUTINE Disposition Time: 12:25 Condition: STABLE Instructions: Chronic Pain Forms: [facility] (Syriac), General Discharge Instructions - Clinical Impression Clinical Impression: Chronic pain - Scribe Statement The provider has reviewed the documentation as recorded by the Scribe Nura Rodriguez All medical record entries made by the Scribe were at my direction and personally dictated by me. I have reviewed the chart and agree that the record accurately reflects my personal performance of the history, physical exam, medical decision making, and the department course for this patient. I have also personally directed, reviewed, and agree with the discharge instructions and disposition.
[2018-05-12] MEDS ORDERED: Lidocaine 5% Patch TD STA (10:38)
[2018-05-12] MEDS ORDERED: Lidocaine 5% Patch TD ONE (10:46)
--- NOTE | 2018-05-12 12:17 | RAD ---
Date of service: 05/12/2018 HISTORY: abdominal pain COMPARISON: No prior. FINDINGS: BOWEL: No bowel obstruction. Mild retained feces. No masses or abnormal intra-abdominal calcifications. Please note that the upright view does not include the most cephalad extent of the right hemidiaphragm and free air cannot be entirely excluded. BONES: Normal. OTHER FINDINGS: None. IMPRESSION: No evidence of bowel obstruction.
[2018-05-12 12:50] VITALS: BP 144/86; PULSE 77; RESP 16; TEMP 97.6
== END 2018-05-12 13:08 | disposition home or self-care (01) ==
LOC: C.ER 09:57
DX: G89.29 Other chronic pain (principal)